=== PATIENT | male | born 2000 | race American Indian/Alaskan Native ===

== ENCOUNTER 2020-07-01 18:05 | Emergency (ER) | payer BC ==
--- NOTE | 2020-07-01 19:31 | CR ---
Indication: Fall Technique: Three views Comparison: None Findings: Bones: Alignment is normal. No fractures or bone lesions. Joint spaces: Unremarkable. Soft tissues: Unremarkable. Dictated by Jose Raul Chavis MD @ 07/01/2020 7:30:[address] Jose Raul Chavis @ Jul 01 2020 7:30PM
--- NOTE | 2020-07-01 19:33 | CR ---
Indication: Fall Technique: Three views Comparison: None Findings: Bones: Slight irregularity of the radial neck on the oblique view consistent with a nondisplaced fracture. Joint spaces: Large elbow effusion. Soft tissues: Mild soft tissue swelling. Dictated by Jose Raul Chavis MD @ 07/01/2020 7:31:[address] Jose Raul Chavis @ Jul 01 2020 7:31PM
--- NOTE | 2020-07-01 19:41 | EDM.PDOC ---
ED HPI GENERAL MEDICAL PROBLEM - General Chief Complaint: Upper Extremity Injury/Pain Stated Complaint: RT ELBOW INJURY, FELL OFF SKATEBOARD Time Seen by Provider: 07/01/20 18:07 Source of Information: Reports: Patient History Limitations: Reports: No Limitations - History of Present Illness INITIAL COMMENTS - FREE TEXT/NARRATIVE: HISTORY AND PHYSICAL: History of present illness: Patient is a 19-year-old male who presents to the emergency room with complaints of right elbow, forearm and wrist pain post fall. He was skateboarding when he slipped and fell landing on his arm. He denies hitting his head or having any loss of consciousness. He denies any other extremity involvement. He offers no systemic complaints. Pain with palpation to the distal forearm to the medial and lateral wrist. He does have full range of motion. Positive CMS with strong pulses. Review of systems: As per history of present illness and below otherwise all systems reviewed and negative. Past medical history: As per history of present illness and as reviewed below otherwise noncontributory. Surgical history: As per history of present illness and as reviewed below otherwise noncon tributory. Social history: See social history for further information Family history: As per history of present illness and as reviewed below otherwise noncontributory. Physical exam: General: Well developed and well nourished. Alert and orientated x 3. Nontoxic in appearance and in no acute distress. Vital signs are stable and have been reviewed by me. Nursing notes were reviewed. HEENT: Atraumatic, normocephalic, pupils equal and reactive bilaterally, negative for conjunctival pallor or scleral icterus, mucous membranes moist, TMs normal bilaterally, throat clear, neck supple, nontender, trachea midline. No drooling or trismus noted. No meningeal signs. No hot potato voice noted. Lungs: Clear to auscultation bilaterally. No wheezes, rales, or rhonchi. Chest nontender. Normal work of breathing, no accessory muscles used. Heart: S1S2, regular rate and rhythm without overt murmur, gallops, or rubs. No JVD. No peripheral edema Abdomen: Soft, nondistended, nontender. Normoactive bowel sounds. Negative for masses or costovertebral tenderness. C-spine/Back: No pinpoint vertebral tenderness upon palpation. No crepitus, step-offs or obvious deformities. Patient is ambulatory into the emergency room without difficulty or deficit. Able to rock back on heels and walk on toes. Denies any urinary or fecal incontinence. Denies any numbness, tingling or saddle paresthesia. No concerns of serious infection, fracture or cord compression, or cauda equina syndrome. Deep tendon reflexes brisk bilaterally. Skin: Intact, warm, dry. No lesions or rashes noted. Hematologic: No petechiae or purpra. Mucosa appropriate color and normal nail bed color and refill. Extremities: Pain with palpation of the proximal forearm to wrist. No snuffbox tenderness. Moves all extremities per self without difficulty or deficits, good flexion extension of hand and wrist. Mild to moderate pain with flexion extension at the elbow. Neurovascular unremarkable. Neuro: Awake, alert, oriented. Cranial nerves II through XII unremarkable. Cerebellum unremarkable. Motor and sensory unremarkable throughout. Exam nonfocal. Psychiatric: Mood and affect are appropriate. Normal thought process. Answering questions appropriately. Notes: *This patient was seen and evaluated during the 2019 SARS-CoV-2 novel coronavirus pandemic period. Community viral transmission is ongoing at time of this encounter and the emergency department is operating under pandemic response procedures. X-ray shows a slight irregularity of the radial neck on the oblique view consistent with a nondisplaced fracture. Large elbow effusion with mild soft tissue swelling. X-ray of the wrist shows no fractures or soft tissue swelling. 1/2 cast fiberglass splint and sling for radial fracture of right upper extremity (palm to above elbow). To wear for comfort and support until follow up with orthopedics. Pre and post splint check completed, +CMS and strong pulses. I have talked with the patient about today's findings, in addition to providing specific details for plan of care. Reassessment at the time of disposition demonstrates that the patient is in no acute distress. The patient is stable for discharge, counseling was provided and we discussed in great detail signs and symptoms that would prompt them to return to the Emergency Department. Medication, follow up and supportive care measures were reviewed and discussed. Voices understanding and is agreeable to plan of care. Denies any further questions or concerns at this time. Diagnostics: X-ray wrist and elbow Therapeutics: 1/2 cast fiberglass, sling Prescription: Tylenol #3 (#20) Impression: Radial fracture, right Plan: 1. You were evaluated today on an emergent basis. Your x-ray shows a slight irregularity of the radial neck consistent with a nondisplaced fracture. Rest, ice, elevate the extremity as able. Please wear the splint as directed. 2. You can alternate Tylenol and ibuprofen as needed for pain and fever management. 3. We encourage you to follow up with orthopedics in the next few days for re- evaluation and further care/management. 4. If your symptoms should worsen, new symptoms develop or any of the signs and symptoms we discussed should arise please return to the emergency room or call 911 (if needed). Definitive disposition and diagnosis as appropriate pending reevaluation and review of above. - Related Data Allergies Allergy/AdvReac Type Severity Reaction Status Date / Time No Known Allergies Allergy Verified 07/01/20 18:19 Home Meds: Home Meds . [No Known Home Meds] 07/01/20 [History] Past Medical History Cardiovascular History: Reports: None Respiratory History: Reports: None Gastrointestinal History: Reports: None Genitourinary History: Reports: None Musculoskeletal History: Reports: None Neurological History: Reports: None Psychiatric History: Reports: None Endocrine/Metabolic History: Reports: None Hematologic History: Reports: None Immunologic History: Reports: None Oncologic (Cancer) History: Reports: None Dermatologic History: Reports: None - Infectious Disease History Infectious Disease History: Reports: None - Past Surgical History Head Surgeries/Procedures: Reports: None Social & Family History - Family History Family Medical History: No Pertinent Family History - Tobacco Use Tobacco Use Status *Q: Never Tobacco User - Caffeine Use Caffeine Use: Reports: None - Recreational Drug Use Recreational Drug Use: No Review of Systems - Review of Systems Review Of Systems: Comprehensive ROS is negative, except as noted in HPI. ED EXAM, GENERAL - Physical Exam Exam: See Below (See dictation) ED TRAUMA EXTREMITY PROCEDURES - Splinting Right upper extremity Splint Site: Right upper extremity Pre-Procedure NV Status: Normal Post-Procedure NV Status: Normal Splint Material: Fiberglass, Sling Splint Design: Posterior, Sling Applied & Form Fitted By: Provider, Nurse Provider Post-Splint Application NV Check: NV Status Normal, Good Position Complications: No Course - Vital Signs Last Recorded V/S: Last Vital Signs Temp 97.4 F 07/01/20 18:20 Pulse 101 H 07/01/20 18:20 Resp 17 07/01/20 18:20 BP 126/71 07/01/20 18:20 Pulse Ox 98 07/01/20 18:20 - Orders/Labs/Meds Orders: Active Orders 24 hr Category Date Time Status DME for Discharge [COMM] Stat Oth 07/01/20 19:42 Ordered Departure - Departure Time of Disposition: 19:41 Disposition: Home, Self-Care 01 Clinical Impression: Radial fracture Qualifiers: Encounter type: initial encounter Radius location: neck Fracture type: closed Fracture alignment: nondisplaced Laterality: right Qualified Code(s): S52.134A - Nondisplaced fracture of neck of right radius, initial encounter for closed fracture - Discharge Information Instructions: Radial Head Fracture, [id number] Referrals: John Paul Snell [Primary Care Provider] - Forms: ED Department Discharge Additional Instructions: The following information is given to patients seen in the emergency department who are being discharged to home. This information is to outline your options for follow-up care. We provide all patients seen in our emergency department with a follow-up referral. The need for follow-up, as well as the timing and circumstances, are variable depending upon the specifics of your emergency department visit. If you don't have a primary care physician on staff, we will provide you with a referral. We always advise you to contact your personal physician following an emergency department visit to inform them of the circumstance of the visit and for follow-up with them and/or the need for any referrals to a consulting specialist. The emergency department will also refer you to a specialist when appropriate. This referral assures that you have the opportunity for follow-up care with a specialist. All of these measure are taken in an effort to provide you with opt imal care, which includes your follow-up. Under all circumstances we always encourage you to contact your private physician who remains a resource for coordinating your care. When calling for follow-up care, please make the office aware that this follow-up is from your recent emergency room visit. If for any reason you are refused follow-up, please contact the [facility] Emergency Department at and asked to speak to the emergency department charge nurse. [facility] Professional Building [address] [place] [address], [address] [place] [address] [facility] [address] [place] [phone] Thank you for choosing the [facility] emergency department in [place] for your medical needs today. It was a pleasure caring for you. Today you were seen in the emergency department for right upper extremity injury after fall. 1. You were evaluated today on an emergent basis. Your x-ray shows a slight irregularity of the radial neck consistent with a nondisplaced fracture. Rest, ice, elevate the extremity as able. Please wear the splint as directed. 2. You can alternate Tylenol and ibuprofen as needed for pain and fever management. 3. We encourage you to follow up with orthopedics in the next few days/week for re-evaluation and further care/management. 4. If your symptoms should worsen, new symptoms develop or any of the signs and symptoms we discussed should arise please return to the emergency room or call 911 (if needed). Sepsis Event Note (ED) - Evaluation Sepsis Screening Result: No Definite Risk - Focused Exam Vital Signs: Vital Signs Temp Pulse Resp BP Pulse Ox 07/01/20 18:20 97.4 F 101 H 17 126/71 98 - My Orders Last 24 Hours: My Active Orders 07/01/20 19:42 DME for Discharge [COMM] Stat - Assessment/Plan Last 24 Hours: My Active Orders 07/01/20 19:42 DME for Discharge [COMM] Stat
== END 2020-07-01 20:25 | disposition home or self-care (01) ==
LOC: MW.ED 18:05
DX: S52.134A Nondisplaced fracture of neck of right radius, initial encounter for closed fracture (principal); W01.0XXA Fall on same level from slipping, tripping and stumbling without subsequent striking against object, initial encounter
CPT/HCPCS: 29105; 73080-26-RT; 73080-RT; 73110-26-RT; 73110-RT; 99283-25

== ENCOUNTER 2021-09-24 09:51 | Emergency (ER) | payer OTHER, BC ==
[2021-09-24] MEDS ORDERED: Lidocaine 1% 5 ML VIAL INJECT ONE (10:34)
== END 2021-09-24 11:43 | disposition home or self-care (01) ==
LOC: MW.ED 09:51
DX: S61.211A Laceration without foreign body of left index finger without damage to nail, initial encounter (principal); W26.8XXA Contact with other sharp object(s), not elsewhere classified, initial encounter; Y99.0 Civilian activity done for income or pay
CPT/HCPCS: 12001; 99282